=== PATIENT | female | born 1995 | race Two or more races ===

== ENCOUNTER 2024-03-22 17:41 | Emergency (ER) | payer OTHER ==
[~2024-03-22] VITALS: Ht 157.5 cm; Wt 63.5 kg
[2024-03-22 17:57] VITALS: BP 127/85; TEMP 98.1; O2SAT 98
== END 2024-03-22 20:12 | disposition left against medical advice (07) ==
LOC: ER 17:47
DX: R11.0 Nausea (principal); R53.1 Weakness; R42 Dizziness and giddiness; Z53.21 Procedure and treatment not carried out due to patient leaving prior to being seen by health care provider